=== PATIENT | female | born 1945 | race Caucasian/White ===

== ENCOUNTER 2017-09-03 14:06 | Emergency (ER) | payer OTHER ==
[2017-09-03 15:03] LABS: BASOPHILS 0.1 % (0-2); EOSINOPHILS 0.7 % (0-7); HEMATOCRIT 32.6 % (36.0-48.0); HEMOGLOBIN 11.2 g/dL (12-16); LYMPHOCYTES 29.1 % (15-50); MCH 34.6 pg (26.0-34.0); MCHC 34.4 g/dL (31.0-37.0); MCV 100.6 fL (80.0-100.0); MEAN PLATELET VOLUME 8.4 fL (7.4-10.4); MONOCYTES 13.4 % (2-11); NEUTROPHILS 55.7 % (40-80); PLATELET COUNT 265 10x3/uL (130-400); RBC 3.24 10x6/uL (4.00-5.40); RDW 14.1 % (11.5-14.5); WBC 7.2 10x3/uL (4.8-10.8)
[2017-09-03 15:05] LABS: APPEARANCE CLEAR (CLEAR); BILIRUBIN NEGATIVE (NEGATIVE); COLOR STRAW (YELLOW); GLUCOSE NEGATIVE (NEGATIVE); KETONE NEGATIVE (NEGATIVE); NITRITE NEGATIVE (NEGATIVE); PROTEIN NEGATIVE (NEGATIVE); UROBILINOGEN NORMAL (NORMAL)
[2017-09-03 15:18] LABS: ALKALINE PHOSPHATASE 76 U/L (46-116); ALT (SGPT) 21 U/L (10-68); CALCIUM 9.1 mg/dL (8.5-10.1); CARBON DIOXIDE 30.1 mmol/L (21.0-32.0); CREATININE - SERUM 0.7 mg/dL (0.6-1.3); GLUCOSE 115 mg/dL (74-106); POTASSIUM - SERUM 4.8 mmol/L (3.5-5.1); PROTEIN - SERUM 6.5 g/dL (6.4-8.2); UREA NITROGEN 16 mg/dL (7-18); eGFR NON AFRICAN AMERICAN 87 mL/min (90-120)
[2017-09-03 15:34] LABS: CALC OSMOLALITY 243 mosm/kg (275-300)
[2017-09-03 15:35] LABS: CHLORIDE - SERUM 85 mmol/L (98-107); SODIUM 120 mmol/L (136-145)
== END 2017-09-03 17:24 | disposition home or self-care (01) ==
LOC: D.ER 14:06
PROVIDERS: Emergency Medicine
DX: R60.0 Localized edema (principal); I87.2 Venous insufficiency (chronic) (peripheral); E87.1 Hypo-osmolality and hyponatremia; E03.9 Hypothyroidism, unspecified; I50.9 Heart failure, unspecified

== ENCOUNTER → 2018-08-13 12:06 | Outpatient (CLI) | payer OTHER | END | disposition home or self-care (01) | LOC: D.RAD 12:06 | DX: R13.12 Dysphagia, oropharyngeal phase (principal) ==

== ENCOUNTER 2018-11-05 05:58 | Day surgery (SDC) | payer OTHER ==
[~2018-11-05] VITALS: Ht 165.1 cm; Wt 68.2 kg
[2018-11-05 06:20] LABS: BASOPHILS 0.1 % (0-2); EOSINOPHILS 1.5 % (0-7); HEMATOCRIT 25.3 % (36.0-48.0); HEMOGLOBIN 8.3 g/dL (12-16); IMMATURE GRANULOCYTES 0.2 % (0-5); LYMPHOCYTES 17.1 % (15-50); MCH 31.3 pg (26.0-34.0); MCHC 32.8 g/dL (31.0-37.0); MCV 95.5 fL (80.0-100.0); MEAN PLATELET VOLUME 8.2 fL (7.4-10.4); MONOCYTES 4.4 % (2-11); NEUTROPHILS 76.7 % (40-80); RBC 2.65 10x6/uL (4.00-5.40); RDW 15.5 % (11.5-14.5)
[2018-11-05 06:26] LABS: PLATELET COUNT 461 10x3/uL (130-400)
[2018-11-05 06:37] LABS: CALC OSMOLALITY 273 mosm/kg (275-300); CALCIUM 7.9 mg/dL (8.5-10.1); CARBON DIOXIDE 31.6 mmol/L (21.0-32.0); CHLORIDE - SERUM 100 mmol/L (98-107); CREATININE - SERUM 0.6 mg/dL (0.6-1.3); GLUCOSE 99 mg/dL (74-106); POTASSIUM - SERUM 4.3 mmol/L (3.5-5.1); SODIUM 136 mmol/L (136-145); UREA NITROGEN 19 mg/dL (7-18); eGFR NON AFRICAN AMERICAN > 90 mL/min (90-120)
[2018-11-05] MEDS ORDERED: MEGESTROL (08:17)
[2018-11-05] MEDS ORDERED: MIRTAZAPINE TAB 7.5 (08:17)
[2018-11-05] MEDS ORDERED: DEPAKOTE500 MG PO (08:18)
[2018-11-05] MEDS ORDERED: RISPERDAL2 MG PO (08:18)
[2018-11-05] MEDS ORDERED: LEVOTHYROXINE100 MCG PO (08:18)
[2018-11-05] MEDS ORDERED: DIOVAN40 MG PO (08:19)
[2018-11-05] MEDS ORDERED: LAMICTAL200 M1 PO (08:19)
[2018-11-05] MEDS ORDERED: FUROSEMIDE40 MG PO (08:19)
[2018-11-05] MEDS ORDERED: DULERA 200 MCG8.8 GM INH (08:19)
[2018-11-05] MEDS ORDERED: K-DUR20 MEQ PO (08:20)
[2018-11-05 08:39] VITALS: BP 111/57; Ht 165.1 cm; Wt 68.2 kg
--- NOTE | 2018-11-07 07:24 | OP ---
PATIENT NAME: JEAN-PIERRE CHAMBERS MEDICAL RECORD: [id number] [facility] DATE: SURGEON: BRANDIN HENDRICKSON DO DATE OF OPERATION: 11/05/2018 PROCEDURE: EGD with biopsies. INDICATIONS FOR PROCEDURE: Abnormal barium esophagram, dysphagia, heartburn, nausea, abnormal weight loss. SCOPE: Olympus video gastroscope. MEDICATIONS: Propofol 50 mg IV per anesthesia. ESTIMATED BLOOD LOSS: Minimal. COMPLICATIONS: None. FINDINGS AND DESCRIPTION OF PROCEDURE: Informed consent was given. The patient was made comfortable with the above medication. After reaching an adequate level of sedation by slow IV push, the patient was placed on her left side. The endoscope was advanced under direct visualization through the mouth to the second portion of the duodenum. Just below the hypopharynx, there was a moderate-sized Zenker's diverticulum present. This made intubation of the esophagus difficult. Once the esophagus was intubated, the endoscope was traversed through the esophagus, down to the GE junction where some mild, LA class A reflux-induced esophagitis was present. The endoscope was advanced beyond the GE junction, into the stomach where a moderate sized mixed hiatal hernia was present. There were no associated ulcers or erosions. The hernia could be visualized, both proximally and upon retroflexion within the stomach. The endoscope was advanced down to the antrum and prepylorus of the stomach, which appeared normal. Random cold forceps biopsies were taken to submit for histopathology and to rule out the presence of H. pylori. The endoscope was advanced beyond the pylorus into the duodenum, which appeared normal down to the second portion. The endoscope was withdrawn from the patient. The patient tolerated the procedure well and there were no complications. IMPRESSIONS: 1. Moderate-sized Zenker's diverticulum in the proximal esophagus consistent with previous esophagram imaging. 2. LA class A reflux-induced esophagitis. 3. Moderate-size mixed type hiatal hernia. PLAN AND RECOMMENDATIONS: 1. Discharge home when recovery parameters are met. 2. Continue current diet of honey thickened liquids and puree until the Zenker's diverticulum is surgically corrected. 3. Maintain follow up with Dr. Talley for treatment of a Zenker's diverticulum. 4. Continue current medications. 5. Follow up in GI clinic as needed. 6. Can consider surgical repair of hiatal hernia if reflux remains a prominent symptom after repair of diverticulum. TRANSINT:[id number] Voice Confirmation ID: [id number] DOCUMENT ID: [id number] OPERATIVE REPORT [id number] JEAN-PIERRE CHAMBERS,BRANDIN Waddell DO at 0724 CC: [id number] DICTATION DATE: 11/05/1825 [employer]: 11/05/18 [id number] [facility] [place] 11/05/18 [id number] [place] [address]
== END 2018-11-05 11:20 | disposition home or self-care (01) ==
LOC: D.OPS 05:58
PROVIDERS: Anesthesiology
DX: K22.5 Diverticulum of esophagus, acquired (principal); K44.9 Diaphragmatic hernia without obstruction or gangrene; K29.50 Unspecified chronic gastritis without bleeding; K21.0 Gastro-esophageal reflux disease with esophagitis; R63.4 Abnormal weight loss; Z01.812 Encounter for preprocedural laboratory examination